=== PATIENT | female | born 1950 | race Hispanic/Latino ===

== ENCOUNTER 2016-06-03 10:56 | Outpatient (CLI) | payer MEDICARE, OTHER ==
--- NOTE | 2016-06-03 14:01 | XRay Report ---
CERVICAL SPINE THREE VIEWS: 06/03/16 10:56:00 CLINICAL: Neck pain. Cervical stenosis with myelopathy. COMPARISON: CT cervical spine 04/09/12 FINDINGS: Status post revision of an anterior cervical fusion C3-C6 since the last exam. Normal alignment from C2-C7. In addition, posterior fusion has been performed from C2-C4. Normal appearance of the hardware. Moderate anterior wedging of the C7 vertebral body is a new finding compared to the prior CT. No fracture line is identified. IMPRESSION: Status post anterior cervical fusion C3-C6 and status post posterior cervical fusion C2-C4.
== END 2016-06-03 10:57 | disposition home or self-care (01) ==
LOC: SPVIMAG 10:56
PROVIDERS: ATTEND Neurological Surgery
DX: M48.02 Spinal stenosis, cervical region (principal); M43.22 Fusion of spine, cervical region
CPT/HCPCS: 72040

== ENCOUNTER 2016-08-28 14:45 | Outpatient (CLI) | payer MEDICARE, OTHER | END 2016-08-28 14:46 | disposition home or self-care (01) | LOC: SPVIMAG 14:45 | PROVIDERS: ATTEND Internal Medicine | DX: M25.512 Pain in left shoulder (principal); Z91.81 History of falling ==